=== PATIENT | female | born 1960 | race Two or more races ===

== ENCOUNTER 2018-02-28 12:45 | Day surgery (SDC) | payer OTHER ==
[2018-02-28] MEDS ORDERED: LABETALOL HCL 20MG INJ (14:34)
[2018-02-28] MEDS ORDERED: LIDOCAINE 2% (SDV) 5 ML INJ (14:34)
[2018-02-28] MEDS ORDERED: PROPOFOL 60 ML (14:34)
== END 2018-02-28 16:17 | disposition home or self-care (01) ==
LOC: GIL 12:45
DX: Z12.11 Encounter for screening for malignant neoplasm of colon (principal); K29.50 Unspecified chronic gastritis without bleeding; D12.6 Benign neoplasm of colon, unspecified; K44.9 Diaphragmatic hernia without obstruction or gangrene; E11.9 Type 2 diabetes mellitus without complications; I10 Essential (primary) hypertension; E66.9 Obesity, unspecified; Z68.41 Body mass index [BMI] 40.0-44.9, adult
CPT/HCPCS: 43239; 82962; 88305; 88312

== ENCOUNTER 2018-06-23 15:06 | Observation (INO) | payer OTHER ==
[2018-06-23 18:15] LABS: ADD UMIC YES; UR ASCORBIC ACID NEGATIVE (NEGATIVE); UR BILIRUBIN (Dip) NEGATIVE (NEGATIVE); UR BLOOD (Dip) 3+ mg/dL (NEGATIVE); UR CLARITY CLEAR (CLEAR); UR COLOR AMBER (YELLOW); UR GLUCOSE (Dip) 2+ mg/dL (NEGATIVE); UR KETONES (Dip) 1+ mg/dL (NEGATIVE); UR LEUKOCYTE ESTERASE (Dip) NEGATIVE Leu/ul (NEGATIVE); UR MUCUS FEW /HPF (NONE SEEN); UR NITRITE (Dip) POSITIVE (NEGATIVE); UR RBC 124 /HPF (0-5); UR SPECIFIC GRAVITY (Dip) 1.021 (1.003-1.030); UR TOTAL PROTEIN (Dip) 2+ mg/dl (NEGATIVE); UR UROBILINOGEN (Dip) NEGATIVE (NEGATIVE); UR WBC 2 /HPF (0-5)
[2018-06-23 18:21] LABS: ADD MAN DIFF? NO
[2018-06-23] MEDS: ONDANSETRON 4 MG INJ IV (18:25)
[2018-06-23] MEDS: morphine 10 MG INJ IV (18:25)
[2018-06-23] MEDS: SOD CHLORIDE 0.9% 1,000 ML IV ×2 (18:26→23:49)
[2018-06-23 18:34] LABS: BASOPHILS % 0.4 % (0.0-2.0); EOSINOPHILS # 0.1 10^3/ul (0.0-0.5); HEMATOCRIT 36.9 % (37.0-47.0); HEMOGLOBIN 12.5 g/dl (12.0-16.0); LYMPHOCYTES % 14.2 % (15.0-51.0); MEAN CORPUSCULAR HEMOGLOBIN 30.5 pg (29.0-33.0); MEAN CORPUSCULAR HGB CONC 33.9 g/dl (32.0-37.0); MEAN PLATELET VOLUME 10.4 fl (7.4-10.4); MONOCYTE # 0.5 10^3/ul (0.3-0.9); MONOCYTES % 6.4 % (0.0-11.0); NEUTROPHIL # 5.7 10^3/ul (1.6-7.5); NEUTROPHILS % 77.5 % (39.0-77.0); PLATELET COUNT 184 10^3/UL (140-415); RED CELL DISTRIBUTION WIDTH 13.1 % (11.5-14.5)
[2018-06-23 18:34] LABS: WHITE BLOOD COUNT 7.3 10^3/ul (4.8-10.8)
[2018-06-23 18:57] LABS: ALANINE AMINOTRANSFERASE 44 IU/L (13-69); ALKALINE PHOSPHATASE 80 IU/L (42-121); ANION GAP 14 (8-16); ASPARTATE AMINO TRANSFERASE 37 IU/L (15-46); BILIRUBIN,INDIRECT 0.3 mg/dl (0-1.1); BILIRUBIN,TOTAL 0.3 mg/dl (0.2-1.3); BLOOD UREA NITROGEN 24 mg/dl (7-20); CALCIUM 9.8 mg/dl (8.4-10.2); CARBON DIOXIDE 26 mmol/L (21-31); CHLORIDE 102 mmol/L (97-110); CREATININE 1.46 mg/dl (0.44-1.00); GLUCOSE 328 mg/dl (70-220); LIPASE 212 U/L (23-300); SODIUM 137 mmol/L (135-144)
[2018-06-23 18:58] LABS: ALBUMIN 3.9 g/dl (3.3-4.9); ALBUMIN/GLOBULIN RATIO 1.18; TOTAL PROTEIN 7.2 g/dl (6.1-8.1)
[2018-06-23 19:03] LABS: POTASSIUM 5.4 mmol/L (3.5-5.1)
[2018-06-23] MEDS ORDERED: ONDANSETRON 4 MG INJ IV (20:00)
[2018-06-23] MEDS ORDERED: ACETAMINOPHEN 325 MG TAB PO (20:00)
[2018-06-23] MEDS: CEFTRIAXONE 1 GM/50 ML (PMX) 50 ML IVPB (20:59)
[2018-06-23] MEDS ORDERED: GLUCOSE GEL 15 GRAM TUBE BUCCAL (23:30)
[2018-06-23] MEDS ORDERED: DEXTROSE 50% 50 ML SYRINGE IV ×2 (23:30)
[2018-06-23] MEDS ORDERED: GLUCAGON 1 MG INJ IM (23:30)
[2018-06-23] MEDS ORDERED: GLUCOSE GEL 15 GRAM TUBE PO ×2 (23:30)
[2018-06-23] MEDS: HYDROCODONE/APAP (5/325) TAB PO (23:50)
[2018-06-24] MEDS: ONDANSETRON 4 MG INJ IV (00:20)
[2018-06-24] MEDS: ACCU-CHEK XX (02:00)
[2018-06-24] MEDS: METOPROLOL 25 MG TAB PO (03:26)
[2018-06-24] MEDS ORDERED: NITROGLYCERIN (SL) 0.4 MG TAB SL (04:00)
[2018-06-24 04:28] LABS: TROPONIN-I < 0.012 ng/ml (0.000-0.120)
[2018-06-24] MEDS ORDERED: traMADol 50 MG TAB PO (04:30)
[2018-06-24] MEDS ORDERED: HYDROCODONE/APAP (5/325) TAB NGT (04:38)
[2018-06-24] MEDS ORDERED: traMADol 50 MG TAB NGT (04:39)
[2018-06-24] MEDS: LANSOPRAZOLE 30 MG CAP NGT (05:03)
[2018-06-24] MEDS: hydrALAzine 20 MG INJ IV (05:04)
[2018-06-24 05:39] LABS: ADD MAN DIFF? NO
[2018-06-24 05:44] LABS: BASOPHILS % 0.5 % (0.0-2.0); EOSINOPHILS % 0.2 % (0.0-7.0); HEMATOCRIT 34.9 % (37.0-47.0); HEMOGLOBIN 11.7 g/dl (12.0-16.0); LYMPHOCYTES # 0.7 10^3/ul (0.8-2.9); LYMPHOCYTES % 12.9 % (15.0-51.0); MEAN CORPUSCULAR HEMOGLOBIN 30.2 pg (29.0-33.0); MEAN CORPUSCULAR HGB CONC 33.5 g/dl (32.0-37.0); MEAN CORPUSCULAR VOLUME 89.9 fl (82.0-101.0); MEAN PLATELET VOLUME 10.8 fl (7.4-10.4); MONOCYTE # 0.3 10^3/ul (0.3-0.9); MONOCYTES % 5.3 % (0.0-11.0); NEUTROPHIL # 4.5 10^3/ul (1.6-7.5); NEUTROPHILS % 80.4 % (39.0-77.0); PLATELET COUNT 169 10^3/UL (140-415); RED BLOOD COUNT 3.88 10^6/ul (4.20-5.40); RED CELL DISTRIBUTION WIDTH 13.1 % (11.5-14.5)
[2018-06-24 05:44] LABS: WHITE BLOOD COUNT 5.7 10^3/ul (4.8-10.8)
[2018-06-24 06:00] LABS: HEMOGLOBIN A1C 10.3 % (0-5.9)
[2018-06-24 06:17] LABS: ALANINE AMINOTRANSFERASE 41 IU/L (13-69); ALBUMIN 3.6 g/dl (3.3-4.9); ALBUMIN/GLOBULIN RATIO 1.12; ALKALINE PHOSPHATASE 73 IU/L (42-121); ANION GAP 15 (8-16); ASPARTATE AMINO TRANSFERASE 31 IU/L (15-46); BILIRUBIN,INDIRECT 0.5 mg/dl (0-1.1); BILIRUBIN,TOTAL 0.5 mg/dl (0.2-1.3); BLOOD UREA NITROGEN 23 mg/dl (7-20); CARBON DIOXIDE 25 mmol/L (21-31); CHLORIDE 102 mmol/L (97-110); CREATININE 1.49 mg/dl (0.44-1.00); GLUCOSE 370 mg/dl (70-220); POTASSIUM 4.9 mmol/L (3.5-5.1); SODIUM 137 mmol/L (135-144); TOTAL PROTEIN 6.8 g/dl (6.1-8.1)
[2018-06-24] MEDS: SOD CHLORIDE 0.9% 1,000 ML IV ×2 (07:30→15:31)
[2018-06-24] MEDS: TAMSULOSIN (SR) 0.4 MG CAP PO (08:41)
[2018-06-24] MEDS: LINAGLIPTIN 5 MG TABLET NGT (08:42)
[2018-06-24] MEDS: AMLODIPINE 10 MG TAB NGT (08:42)
[2018-06-24] MEDS: CIPROFLOXACIN 400MG/D5W 200 ML IVPB (08:43)
[2018-06-24] MEDS: METOPROLOL 25 MG TAB NGT ×2 (08:43→20:48)
[2018-06-24] MEDS: INSULIN ASPART [NOVOLOG] 3 ML PEN SC ×6 (08:46→20:48)
[2018-06-24 09:32] LABS: ADD UMIC YES; UR ASCORBIC ACID NEGATIVE (NEGATIVE); UR BILIRUBIN (Dip) NEGATIVE (NEGATIVE); UR BLOOD (Dip) NEGATIVE (NEGATIVE); UR CLARITY CLEAR (CLEAR); UR COLOR AMBER (YELLOW); UR GLUCOSE (Dip) 3+ mg/dL (NEGATIVE); UR KETONES (Dip) 1+ mg/dL (NEGATIVE); UR LEUKOCYTE ESTERASE (Dip) NEGATIVE Leu/ul (NEGATIVE); UR NITRITE (Dip) POSITIVE (NEGATIVE); UR RBC 0 /HPF (0-5); UR SPECIFIC GRAVITY (Dip) 1.016 (1.003-1.030); UR TOTAL PROTEIN (Dip) 1+ mg/dl (NEGATIVE); UR UROBILINOGEN (Dip) 1+ mg/dL (NEGATIVE); UR WBC 1 /HPF (0-5)
[2018-06-24 11:13] LABS: SODIUM,URINE RANDOM 115 mmol/L (30-90)
[2018-06-24] MEDS: INSULIN GLARGINE [LANTus] (100 UNITS/ML) SYG SC (12:33)
[2018-06-24] MEDS ORDERED: CEFTRIAXONE 1 GM/50 ML (PMX) 50 ML IVPB (15:30)
[2018-06-24 16:15] LABS: CANCER ANTIGEN 125 14.8 U/ml (0.0-35.0)
[2018-06-24] MEDS: CEFTRIAXONE 1 GM/50 ML (PMX) 50 ML IVPB (20:39)
[2018-06-25] MEDS ORDERED: ACCU-CHEK XX (02:00)
[2018-06-25] MEDS: ACCU-CHEK XX (02:00)
[2018-06-25] MEDS: SOD CHLORIDE 0.9% 1,000 ML IV ×2 (02:23→12:47)
[2018-06-25] MEDS: LANSOPRAZOLE 30 MG CAP NGT (06:05)
[2018-06-25 06:15] LABS: ADD MAN DIFF? NO
[2018-06-25 06:32] LABS: BASOPHILS % 0.2 % (0.0-2.0); EOSINOPHILS # 0.1 10^3/ul (0.0-0.5); EOSINOPHILS % 2.4 % (0.0-7.0); HEMATOCRIT 33.7 % (37.0-47.0); HEMOGLOBIN 11.2 g/dl (12.0-16.0); LYMPHOCYTES # 1.3 10^3/ul (0.8-2.9); MEAN CORPUSCULAR HEMOGLOBIN 30.9 pg (29.0-33.0); MEAN CORPUSCULAR HGB CONC 33.2 g/dl (32.0-37.0); MEAN CORPUSCULAR VOLUME 92.8 fl (82.0-101.0); MEAN PLATELET VOLUME 10.5 fl (7.4-10.4); MONOCYTE # 0.4 10^3/ul (0.3-0.9); MONOCYTES % 8.9 % (0.0-11.0); NEUTROPHIL # 2.8 10^3/ul (1.6-7.5); NEUTROPHILS % 59.8 % (39.0-77.0); PLATELET COUNT 160 10^3/UL (140-415); RED BLOOD COUNT 3.63 10^6/ul (4.20-5.40); RED CELL DISTRIBUTION WIDTH 13.2 % (11.5-14.5)
[2018-06-25 06:32] LABS: WHITE BLOOD COUNT 4.6 10^3/ul (4.8-10.8)
[2018-06-25 06:50] LABS: ANION GAP 12 (8-16); BLOOD UREA NITROGEN 20 mg/dl (7-20); CALCIUM 8.5 mg/dl (8.4-10.2); CARBON DIOXIDE 26 mmol/L (21-31); CHLORIDE 107 mmol/L (97-110); CREATININE 0.86 mg/dl (0.44-1.00); GLUCOSE 237 mg/dl (70-220); MAGNESIUM 1.4 mg/dl (1.7-2.5); PHOSPHORUS 2.6 mg/dl (2.5-4.9); POTASSIUM 4.5 mmol/L (3.5-5.1); SODIUM 140 mmol/L (135-144)
[2018-06-25] MEDS: TAMSULOSIN (SR) 0.4 MG CAP PO (08:27)
[2018-06-25] MEDS: LINAGLIPTIN 5 MG TABLET NGT (08:27)
[2018-06-25] MEDS: METOPROLOL 25 MG TAB NGT (08:29)
[2018-06-25] MEDS: AMLODIPINE 10 MG TAB NGT (08:29)
[2018-06-25] MEDS: INSULIN GLARGINE [LANTus] (100 UNITS/ML) SYG SC ×2 (08:31→10:42)
[2018-06-25] MEDS: INSULIN ASPART [NOVOLOG] 3 ML PEN SC ×4 (08:32→12:46)
[2018-06-25] MEDS: LISINOPRIL 20 MG TAB PO (10:38)
[2018-06-25] MEDS: MAGNESIUM SULFATE 4 GM/100 ML 100 ML IVPB (10:39)
[2018-06-25 13:21] LABS: CREATININE, RANDOM URINE 61 mg/dL (20-320); MICROALBUMIN 18.7 mg/dL; MICROALBUMIN/CREATININE RATIO 307 (<30)
[2018-06-25] MEDS: MAGNESIUM OXIDE 400 MG TAB PO (15:09)
[2018-06-26] MEDS ORDERED: INSULIN GLARGINE [LANTus] (100 UNITS/ML) SYG SC (08:00)
[2018-06-28 16:32] LABS: SPECIMEN SOURCE Right Kidney
== END 2018-06-25 15:16 | disposition home or self-care (01) ==
LOC: MS1 21:41 → E/R 15:06 → MS1 20:00
DX: N13.2 Hydronephrosis with renal and ureteral calculous obstruction (principal); E11.65 Type 2 diabetes mellitus with hyperglycemia; E87.6 Hypokalemia; N83.201 Unspecified ovarian cyst, right side; I10 Essential (primary) hypertension; N17.9 Acute kidney failure, unspecified; Z79.84 Long term (current) use of oral hypoglycemic drugs; E66.01 Morbid (severe) obesity due to excess calories; Z68.41 Body mass index [BMI] 40.0-44.9, adult; D64.9 Anemia, unspecified
CPT/HCPCS: 36415; 71045; 74018; 74176; 76775; 76830; 76856; 80048; 80053; 81001; 81003; 82043; 82355; 82962; 83036; 83690; 83735; 84100; 84155; 84300; 84443; 84484; 85025; 86304; 87086; 93005; 96361; 96374; 96375; 99217; 99285-25

== ENCOUNTER 2018-07-28 06:19 | Emergency (ER) | payer OTHER ==
[2018-07-28] MEDS: morphine 4 MG/ML VIAL IM (07:26)
[2018-07-28] MEDS: KETOROLAC 30 MG INJ IM (07:27)
[2018-07-28 07:28] LABS: URINE PH (Dip) POC 5.5 (5.0-8.5)
[2018-07-28 07:28] LABS: URINE BLOOD (Dip) POC Negative (NEGATIVE); URINE GLUCOSE (Dip) POC Negative (NEGATIVE); URINE KETONES (Dip) POC 1+ (NEGATIVE); URINE LEUKOCYTE EST (Dip) POC Trace (NEGATIVE); URINE NITRITE (Dip) POC Negative (NEGATIVE); URINE TOTAL PROTEIN POC 3+ (NEGATIVE)
== END 2018-07-28 08:19 | disposition home or self-care (01) ==
LOC: FTE 06:19
DX: M54.6 Pain in thoracic spine (principal); I10 Essential (primary) hypertension; E11.9 Type 2 diabetes mellitus without complications; Z79.84 Long term (current) use of oral hypoglycemic drugs
CPT/HCPCS: 71045; 81003; 93005; 96372; 99284-25

== ENCOUNTER 2019-03-04 08:13 | Inpatient (IN) | payer OTHER ==
[2019-03-04] MEDS: TRANEXAMIC ACID 1GM/100ML(PMX) 100 ML INTRA-OP X1 IVPB ×2 (07:00→13:00)
[~2019-03-04 08:13] MED LIST: CEFAZOLIN 1 GM INJ; DESFLURANE 15 MIN; DEXAMETHASONE 4 MG/ML 5 ML INJ; FENTAnyl 50 MCG/ML VIAL; GLYCOPYRROLATE 0.4 MG INJ; HIP PAIN COCKTAIL VANCO INJ; MIDAZOLAM 1 MG/ML 2 ML INJ; NEOSTIGMINE 3 MG/3 ML SYRINGE; ONDANSETRON 4 MG INJ; PROPOFOL 20 ML; ROCURONIUM 50 MG INJ; ROPIVACAINE 0.5 % 30 ML VIAL; TRANEXAMIC ACID 1 GM/100 ML (PMX); morphine SULFATE/PF (10 MG/10 ML) INJ
[2019-03-04] MEDS: ACCU-CHEK XX ×3 (09:00→21:00)
[2019-03-04] MEDS: VANCOMYCIN 1 GM (PMX) 250 ML IVPB ×2 (09:13→21:28)
[2019-03-04] MEDS: ACETAMINOPHEN 1000MG/100ML IV 100 ML IVPB (09:13)
[2019-03-04] MEDS: oxyCODONE (CR) 10 MG TAB [oxyCONTIN] PO (09:14)
[2019-03-04] MEDS: ONDANSETRON 4 MG INJ IV ×3 (09:14→21:00)
[2019-03-04] MEDS: LACTATED RINGER'S 1,000 ML IV (09:14)
[2019-03-04] MEDS: DEXAMETHASONE 4 MG/ML 1 ML INJ IV (09:14)
[2019-03-04] MEDS: LANSOPRAZOLE 30 MG CAP PO (09:15)
[2019-03-04] MEDS: ACETAMINOPHEN 500 MG TAB PO (09:15)
[2019-03-04] MEDS: INSULIN ASPART [NOVOLOG] 3 ML PEN SC ×3 (09:16→21:26)
[2019-03-04] MEDS: TRANEXAMIC ACID 1GM/100ML(PMX) 100 ML PRE-OP X1 IVPB (11:20)
[2019-03-04] MEDS ORDERED: PROVENTIL HFA 6.7GM INHALER (11:38)
[2019-03-04] MEDS: HIP PAIN COCKTAIL VANCO INJ (11:50)
[2019-03-04] MEDS: BACITRACIN 50000 UNITS INJ (11:51)
[2019-03-04] MEDS: POLYMYXIN B 500000 UNIT INJ (11:51)
[2019-03-04] MEDS ORDERED: TRANEXAMIC ACID 1GM/100ML(PMX) 100 ML (12:21)
[2019-03-04] MEDS ORDERED: SUGAMMADEX SODIUM 200 MG/2 ML VIAL IV (13:20)
[2019-03-04] MEDS ORDERED: NALOXONE (0.4 MG/ML) INJ IV (13:30)
[2019-03-04] MEDS ORDERED: NACL 0.9% 3 ML SYG IV (13:30)
[2019-03-04] MEDS ORDERED: CEFAZOLIN 2 GM/50 ML (PMX) 50 ML IVPB (13:30)
[2019-03-04] MEDS: DOCUSATE SODIUM 100 MG CAP PO (14:16)
[2019-03-04] MEDS: hydrALAzine 20 MG INJ IV (14:18)
[2019-03-04] MEDS ORDERED: GLUCOSE GEL 15 GRAM TUBE PO ×2 (14:30)
[2019-03-04] MEDS ORDERED: GLUCOSE GEL 15 GRAM TUBE BUCCAL (14:30)
[2019-03-04] MEDS ORDERED: DEXTROSE 50% 50 ML SYRINGE IV ×2 (14:30)
[2019-03-04] MEDS ORDERED: GLUCAGON 1 MG INJ IM (14:30)
[2019-03-04] MEDS: metFORMIN 500 MG TAB PO (18:16)
[2019-03-04] MEDS: MAGNESIUM OXIDE 400 MG TAB PO (21:00)
[2019-03-04] MEDS: GABAPENTIN 100 MG CAP PO (21:00)
[2019-03-04] MEDS: FISH OIL 1,000 MG CAP PO (21:00)
[2019-03-04] MEDS: INSULIN GLARGINE [LANTus] (100 UNITS/ML) SYG SC (21:08)
[2019-03-04] MEDS: METOPROLOL 25 MG TAB PO (21:21)
[2019-03-05] MEDS: ONDANSETRON 4 MG INJ IV ×2 (01:30→08:59)
[2019-03-05] MEDS: ACCU-CHEK XX ×5 (02:00→21:00)
[2019-03-05 05:05] LABS: ADD MAN DIFF? NO
[2019-03-05 05:10] LABS: WHITE BLOOD COUNT 6.8 10^3/ul (4.8-10.8)
[2019-03-05 05:10] LABS: HEMATOCRIT 27.7 % (37.0-47.0); HEMOGLOBIN 9.2 g/dl (12.0-16.0); LYMPHOCYTES # 0.8 10^3/ul (0.8-2.9); LYMPHOCYTES % 11.2 % (15.0-51.0); MEAN CORPUSCULAR HEMOGLOBIN 30.5 pg (29.0-33.0); MEAN CORPUSCULAR HGB CONC 33.2 g/dl (32.0-37.0); MEAN CORPUSCULAR VOLUME 91.7 fl (82.0-101.0); MONOCYTE # 0.6 10^3/ul (0.3-0.9); MONOCYTES % 8.5 % (0.0-11.0); NEUTROPHIL # 5.4 10^3/ul (1.6-7.5); PLATELET COUNT 158 10^3/UL (140-415); RED BLOOD COUNT 3.02 10^6/ul (4.20-5.40)
[2019-03-05 05:22] LABS: ANION GAP 6 (5-13); BLOOD UREA NITROGEN 31 mg/dl (7-20); CALCIUM 8.5 mg/dl (8.4-10.2); CARBON DIOXIDE 27 mmol/L (21-31); CHLORIDE 105 mmol/L (97-110); CREATININE 1.01 mg/dl (0.44-1.00); Estimated GFR 56 mL/min (>60); GLUCOSE 240 mg/dl (70-220); POTASSIUM 4.9 mmol/L (3.5-5.1); SODIUM 138 mmol/L (135-144)
[2019-03-05] MEDS: INSULIN ASPART [NOVOLOG] 3 ML PEN SC ×4 (08:58→21:38)
[2019-03-05] MEDS: CHOLECALCIFEROL 2,000 UNIT CAP PO (08:59)
[2019-03-05] MEDS: VANCOMYCIN 1 GM (PMX) 250 ML IVPB (08:59)
[2019-03-05] MEDS: ASPIRIN (EC) 81 MG TAB PO ×2 (09:00→21:08)
[2019-03-05] MEDS: CELECOXIB 100 MG CAP PO ×2 (09:00→21:08)
[2019-03-05] MEDS: GABAPENTIN 100 MG CAP PO ×3 (09:00→21:08)
[2019-03-05] MEDS: FISH OIL 1,000 MG CAP PO ×2 (09:00→21:00)
[2019-03-05] MEDS: LINAGLIPTIN 5 MG TABLET PO (09:00)
[2019-03-05] MEDS: MAGNESIUM OXIDE 400 MG TAB PO ×2 (09:00→21:10)
[2019-03-05] MEDS: METOPROLOL 25 MG TAB PO ×2 (09:08→21:10)
[2019-03-05] MEDS: metFORMIN 500 MG TAB PO ×2 (09:08→17:50)
[2019-03-05] MEDS: LISINOPRIL 20 MG TAB PO (09:08)
[2019-03-05] MEDS: KETOROLAC 15 MG INJ IV ×3 (09:19→21:31)
[2019-03-05] MEDS: HYDROCODONE/APAP (5/325) TAB PO ×2 (12:04→17:51)
[2019-03-05] MEDS: INSULIN GLARGINE [LANTus] (100 UNITS/ML) SYG SC (21:38)
[2019-03-06] MEDS: HYDROCODONE/APAP (5/325) TAB PO ×3 (01:32→14:08)
[2019-03-06] MEDS: ACCU-CHEK XX ×9 (02:00→21:00)
[2019-03-06 05:05] LABS: ADD MAN DIFF? NO
[2019-03-06 05:16] LABS: BASOPHILS % 0.4 % (0.0-2.0); EOSINOPHILS # 0.1 10^3/ul (0.0-0.5); EOSINOPHILS % 1.1 % (0.0-7.0); HEMATOCRIT 28.3 % (37.0-47.0); HEMOGLOBIN 9.4 g/dl (12.0-16.0); LYMPHOCYTES # 1.7 10^3/ul (0.8-2.9); LYMPHOCYTES % 29.8 % (15.0-51.0); MEAN CORPUSCULAR HEMOGLOBIN 30.7 pg (29.0-33.0); MEAN CORPUSCULAR HGB CONC 33.2 g/dl (32.0-37.0); MEAN CORPUSCULAR VOLUME 92.5 fl (82.0-101.0); MEAN PLATELET VOLUME 10.9 fl (7.4-10.4); MONOCYTE # 0.6 10^3/ul (0.3-0.9); NEUTROPHIL # 3.3 10^3/ul (1.6-7.5); NEUTROPHILS % 58.5 % (39.0-77.0); PLATELET COUNT 148 10^3/UL (140-415); RED BLOOD COUNT 3.06 10^6/ul (4.20-5.40); RED CELL DISTRIBUTION WIDTH 13.2 % (11.5-14.5)
[2019-03-06 05:16] LABS: WHITE BLOOD COUNT 5.7 10^3/ul (4.8-10.8)
[2019-03-06 05:39] LABS: ANION GAP 6 (5-13); BLOOD UREA NITROGEN 36 mg/dl (7-20); CALCIUM 8.4 mg/dl (8.4-10.2); CARBON DIOXIDE 27 mmol/L (21-31); CHLORIDE 105 mmol/L (97-110); CREATININE 1.01 mg/dl (0.44-1.00); Estimated GFR 56 mL/min (>60); GLUCOSE 177 mg/dl (70-220); SODIUM 138 mmol/L (135-144)
[2019-03-06 06:38] LABS: POTASSIUM 4.8 mmol/L (3.5-5.1)
[2019-03-06 08:05] LABS: HEMOGLOBIN A1C 8.2 % (0-5.9)
[2019-03-06] MEDS: PANTOPRAZOLE (EC) 40 MG TAB PO (08:11)
[2019-03-06] MEDS: MAGNESIUM OXIDE 400 MG TAB PO ×2 (08:15→21:48)
[2019-03-06] MEDS: CELECOXIB 100 MG CAP PO ×2 (08:16→21:47)
[2019-03-06] MEDS: CHOLECALCIFEROL 2,000 UNIT CAP PO (08:16)
[2019-03-06] MEDS: ASPIRIN (EC) 81 MG TAB PO ×2 (08:16→21:47)
[2019-03-06] MEDS: LISINOPRIL 20 MG TAB PO (08:16)
[2019-03-06] MEDS: GABAPENTIN 100 MG CAP PO ×3 (08:16→21:48)
[2019-03-06] MEDS: FISH OIL 1,000 MG CAP PO ×2 (08:17→21:00)
[2019-03-06] MEDS: METOPROLOL 25 MG TAB PO ×2 (08:17→21:48)
[2019-03-06] MEDS: metFORMIN 500 MG TAB PO ×2 (08:42→17:53)
[2019-03-06] MEDS: LINAGLIPTIN 5 MG TABLET PO (08:42)
[2019-03-06] MEDS: INSULIN ASPART [NOVOLOG] 3 ML PEN SC ×4 (08:44→21:56)
[2019-03-06] MEDS: REPAGLINIDE 1 MG TAB PO ×3 (09:19→17:53)
[2019-03-06] MEDS: KETOROLAC 15 MG INJ IV (12:34)
[2019-03-06] MEDS: DOCUSATE SODIUM 100 MG CAP PO ×2 (16:34→21:48)
[2019-03-06] MEDS: BISACODYL (EC) 5 MG TAB PO (16:34)
[2019-03-06] MEDS: INSULIN GLARGINE [LANTus] (100 UNITS/ML) SYG SC (21:55)
[2019-03-07] MEDS: KETOROLAC 15 MG INJ IV (01:57)
[2019-03-07] MEDS: HYDROCODONE/APAP (5/325) TAB PO ×2 (01:57→08:53)
[2019-03-07] MEDS: ACCU-CHEK XX ×3 (02:00→07:20)
[2019-03-07 05:19] LABS: ADD MAN DIFF? NO
[2019-03-07 05:21] LABS: BASOPHILS % 0.6 % (0.0-2.0); EOSINOPHILS # 0.1 10^3/ul (0.0-0.5); EOSINOPHILS % 2.1 % (0.0-7.0); HEMATOCRIT 28.4 % (37.0-47.0); HEMOGLOBIN 9.3 g/dl (12.0-16.0); LYMPHOCYTES # 1.2 10^3/ul (0.8-2.9); LYMPHOCYTES % 24.7 % (15.0-51.0); MEAN CORPUSCULAR HEMOGLOBIN 30.5 pg (29.0-33.0); MEAN CORPUSCULAR HGB CONC 32.7 g/dl (32.0-37.0); MEAN CORPUSCULAR VOLUME 93.1 fl (82.0-101.0); MEAN PLATELET VOLUME 11.1 fl (7.4-10.4); MONOCYTE # 0.5 10^3/ul (0.3-0.9); MONOCYTES % 10.8 % (0.0-11.0); NEUTROPHIL # 2.9 10^3/ul (1.6-7.5); NEUTROPHILS % 61.4 % (39.0-77.0); PLATELET COUNT 146 10^3/UL (140-415); RED BLOOD COUNT 3.05 10^6/ul (4.20-5.40); RED CELL DISTRIBUTION WIDTH 13.2 % (11.5-14.5)
[2019-03-07 05:21] LABS: WHITE BLOOD COUNT 4.7 10^3/ul (4.8-10.8)
[2019-03-07 05:49] LABS: ANION GAP 3 (5-13); BLOOD UREA NITROGEN 30 mg/dl (7-20); CALCIUM 8.5 mg/dl (8.4-10.2); CARBON DIOXIDE 30 mmol/L (21-31); CHLORIDE 106 mmol/L (97-110); CREATININE 1.02 mg/dl (0.44-1.00); Estimated GFR 56 mL/min (>60); GLUCOSE 161 mg/dl (70-220); POTASSIUM 5.1 mmol/L (3.5-5.1); SODIUM 139 mmol/L (135-144)
[2019-03-07] MEDS: PANTOPRAZOLE (EC) 40 MG TAB PO (06:00)
[2019-03-07] MEDS: INSULIN ASPART [NOVOLOG] 3 ML PEN SC (07:50)
[2019-03-07] MEDS: DOCUSATE SODIUM 100 MG CAP PO (08:42)
[2019-03-07] MEDS: CELECOXIB 100 MG CAP PO (08:43)
[2019-03-07] MEDS: ASPIRIN (EC) 81 MG TAB PO (08:43)
[2019-03-07] MEDS: METOPROLOL 25 MG TAB PO (08:44)
[2019-03-07] MEDS: CHOLECALCIFEROL 2,000 UNIT CAP PO (08:44)
[2019-03-07] MEDS: GABAPENTIN 100 MG CAP PO (08:44)
[2019-03-07] MEDS: MAGNESIUM OXIDE 400 MG TAB PO (08:44)
[2019-03-07] MEDS: LINAGLIPTIN 5 MG TABLET PO (08:44)
[2019-03-07] MEDS: LISINOPRIL 20 MG TAB PO (08:45)
[2019-03-07] MEDS: REPAGLINIDE 1 MG TAB PO (08:45)
[2019-03-07] MEDS: FISH OIL 1,000 MG CAP PO (08:48)
[2019-03-07] MEDS: metFORMIN 500 MG TAB PO (08:53)
== END 2019-03-07 11:25 | disposition home health service (06) | DRG 470 ==
LOC: REC 08:13 → MS1 14:48
PROVIDERS: Orthopaedic Surgery Adult Reconstructive Orthopaedic Surgery
PROC: 0SRD069 Replacement of Left Knee Joint with Oxidized Zirconium on Polyethylene Synthetic Substitute, Cemented, Open Approach (ICD-10-PCS; principal; 2019-03-04 10:30)
DX: M17.12 Unilateral primary osteoarthritis, left knee (principal); E66.01 Morbid (severe) obesity due to excess calories; Z68.38 Body mass index [BMI] 38.0-38.9, adult; I11.0 Hypertensive heart disease with heart failure; I50.9 Heart failure, unspecified; G47.33 Obstructive sleep apnea (adult) (pediatric); E11.9 Type 2 diabetes mellitus without complications
CPT/HCPCS: 73560; 80048; 82962; 83036; 85025; 88304; 88311; 97116; 97161; 97530; 99217

== ENCOUNTER 2019-04-03 19:18 | Emergency (ER) | payer OTHER ==
[2019-04-03] MEDS: ONDANSETRON (ODT) 4 MG TAB ODT (19:55)
[2019-04-03] MEDS: HYDROCODONE/APAP (10/325) TAB PO (19:55)
== END 2019-04-03 20:54 | disposition home or self-care (01) ==
LOC: FTE 20:54
DX: G89.18 Other acute postprocedural pain (principal); I10 Essential (primary) hypertension; E11.9 Type 2 diabetes mellitus without complications; E66.01 Morbid (severe) obesity due to excess calories; Z79.4 Long term (current) use of insulin; Z79.82 Long term (current) use of aspirin
CPT/HCPCS: 99283; Z7502

== ENCOUNTER 2019-05-08 20:40 | Emergency (ER) | payer OTHER ==
[2019-05-09] MEDS: DEXAMETHASONE 10 MG/ML 1 ML INJ IM (00:18)
[2019-05-09] MEDS: KETOROLAC 30 MG INJ IM (00:19)
== END 2019-05-09 00:55 | disposition home or self-care (01) ==
LOC: FTE 20:40
DX: M54.31 Sciatica, right side (principal); I10 Essential (primary) hypertension; E11.9 Type 2 diabetes mellitus without complications; E66.01 Morbid (severe) obesity due to excess calories; Z68.41 Body mass index [BMI] 40.0-44.9, adult; Z79.4 Long term (current) use of insulin; Z79.82 Long term (current) use of aspirin; Z96.652 Presence of left artificial knee joint
CPT/HCPCS: 96372; 99284-25

== ENCOUNTER 2019-05-22 15:15 | Emergency (ER) | payer OTHER ==
[2019-05-22] MEDS: ASPIRIN 325 MG TAB PO (16:47)
[2019-05-22] MEDS: SOD CHLORIDE 0.9% 500 ML IV (16:47)
[2019-05-22 16:51] LABS: ADD MAN DIFF? NO
[2019-05-22 16:59] LABS: BASOPHILS % 0.5 % (0.0-2.0); EOSINOPHILS # 0.3 10^3/ul (0.0-0.5); EOSINOPHILS % 3.9 % (0.0-7.0); HEMATOCRIT 37.8 % (37.0-47.0); HEMOGLOBIN 12.1 g/dl (12.0-16.0); LYMPHOCYTES # 1.4 10^3/ul (0.8-2.9); LYMPHOCYTES % 22.2 % (15.0-51.0); MEAN CORPUSCULAR HEMOGLOBIN 29.6 pg (29.0-33.0); MEAN CORPUSCULAR VOLUME 92.4 fl (82.0-101.0); MEAN PLATELET VOLUME 10.7 fl (7.4-10.4); MONOCYTE # 0.5 10^3/ul (0.3-0.9); MONOCYTES % 7.6 % (0.0-11.0); NEUTROPHIL # 4.2 10^3/ul (1.6-7.5); NEUTROPHILS % 65.5 % (39.0-77.0); PLATELET COUNT 200 10^3/UL (140-415); RED BLOOD COUNT 4.09 10^6/ul (4.20-5.40); RED CELL DISTRIBUTION WIDTH 13.5 % (11.5-14.5)
[2019-05-22 16:59] LABS: WHITE BLOOD COUNT 6.3 10^3/ul (4.8-10.8)
[2019-05-22 17:11] LABS: ANION GAP 8 (5-13); BLOOD UREA NITROGEN 20 mg/dl (7-20); CALCIUM 9.5 mg/dl (8.4-10.2); CARBON DIOXIDE 30 mmol/L (21-31); CHLORIDE 108 mmol/L (97-110); CREATININE 1.11 mg/dl (0.44-1.00); Estimated GFR 50 mL/min (>60); GLUCOSE 191 mg/dl (70-220); POTASSIUM 3.8 mmol/L (3.5-5.1); SODIUM 146 mmol/L (135-144)
[2019-05-22 17:22] LABS: TROPONIN-I < 0.012 ng/ml (0.000-0.120)
== END 2019-05-22 20:14 | disposition home or self-care (01) ==
LOC: E/R 15:15
DX: R55 Syncope and collapse (principal); E11.9 Type 2 diabetes mellitus without complications; I10 Essential (primary) hypertension; Z79.4 Long term (current) use of insulin; Z79.82 Long term (current) use of aspirin; Z96.651 Presence of right artificial knee joint
CPT/HCPCS: 36415; 71045; 80048; 82962; 84443; 84484; 85025; 93005; 96360; 99285-25